=== PATIENT | female | born 1935 | race Caucasian/White ===

== ENCOUNTER → 2016-05-18 | Outpatient (CLI) | payer MEDICARE, OTHER ==
--- NOTE | 2016-05-18 16:17 | CT ---
EXAM DESCRIPTION: Chest CT. CLINICAL HISTORY: Abnormality seen on previous chest x-ray, nodule COMPARISON: None. TECHNIQUE: A volumetric CT without IV contrast was acquired and displayed in multiplanar reconstructions. FINDINGS: Mediastinum: Coronary artery disease noted. Visualized lymph nodes are within normal limits for CT size criteria. No acute aortic abnormality, pericardial effusion, or mediastinal mass. Upper Abdomen: Visualized segments of the abdominal organs are unremarkable. Lungs: Moderate emphysema noted. No pulmonary nodule or mass noted. No pleural effusion. Bones: No suspicious bone lesion is seen. IMPRESSION: Today's exam demonstrates moderate emphysematous changes, but no evidence of pulmonary malignancy. The findings seen on the previous chest radiograph was likely artifactual. Electronically signed by: Prudencio Seymour MD 05/18/2016 16:15
== END ==
LOC: CT 13:15
PROVIDERS: ATTEND Family Medicine
DX: R93.8 Abnormal findings on diagnostic imaging of other specified body structures (principal); J43.9 Emphysema, unspecified

== ENCOUNTER → 2016-07-29 | Outpatient (CLI) | payer MEDICARE, OTHER ==
--- NOTE | 2016-07-29 17:32 | RAD ---
EXAM DESCRIPTION: Hip,Left 2 Views CLINICAL HISTORY: PAIN IN LEFT HIP COMPARISON: None. TECHNIQUE: AP/frog lateral FINDINGS: I see no bone joint or soft tissue abnormality. IMPRESSION: Normal left hip. Electronically signed by: George Rodriguez MD 07/29/2016 5:31 PM CDT
--- NOTE | 2016-07-29 17:33 | RAD ---
EXAM DESCRIPTION: Hip,Right 2 Views CLINICAL HISTORY: PAIN IN RIGHT HIP COMPARISON: None Available. TECHNIQUE: AP/frog leg lateral FINDINGS: There is no bone, joint, or soft tissue abnormality. IMPRESSION: Normal right hip Electronically signed by: George Rodriguez MD 07/29/2016 5:32 PM CDT
--- NOTE | 2016-07-29 17:34 | RAD ---
EXAM DESCRIPTION: Pelvis CLINICAL HISTORY: PAIN IN RIGHT HIP COMPARISON: None. TECHNIQUE: AP pelvis FINDINGS: Degenerative changes are observed in the pubic symphysis. The pelvis and proximal femurs are otherwise unremarkable. No fracturing is detected. IMPRESSION: Unremarkable pelvis. Electronically signed by: George Rodriguez MD 07/29/2016 5:33 PM CDT
== END | disposition home or self-care (01) ==
LOC: RAD 09:59
PROVIDERS: ATTEND Orthopaedic Surgery
DX: M25.551 Pain in right hip (principal)

== ENCOUNTER → 2017-08-04 | Outpatient (CLI) | payer MEDICARE, OTHER | END | disposition home or self-care (01) | LOC: GMAJ 14:29 | PROVIDERS: ATTEND Family Medicine | DX: R23.3 Spontaneous ecchymoses (principal); I10 Essential (primary) hypertension ==

== ENCOUNTER → 2017-09-14 | Outpatient (CLI) | payer MEDICARE, OTHER ==
--- NOTE | 2017-09-15 10:21 | MRI ---
EXAM DESCRIPTION: Brain w/oContrast: MRI. CLINICAL HISTORY: MEMORY LOSS COMPARISON: None. TECHNIQUE: Multiplanar, high-field MRI unit, multiple diffusion sequences, multiple conventional sequences without contrast. FINDINGS: Multiple small foci of bilateral relatively symmetric hyperintense FLAIR and T2-weighted signal in the periventricular white matter and vera-white matter junctions of the cerebral hemispheres. . Focal bright hyperintense FLAIR and T2 signal in the lateral left basal ganglia; possible cystic signal in the right basal ganglia versus volume loss. No hemorrhage, no cerebral edema, no mass-effect. Minimal hyperintense FLAIR signal in the gemma of the brainstem. Normal signal in the cerebellar hemispheres. No hemorrhage, no cerebral edema, no mass-effect. Concordance of the diffusion and non-diffusion sequences with no diffusion restriction. Cortical sulci, ventricles, and other CSF spaces, and the subdural spaces are normally configured for patients age. No effacement or displacement. No midline shift. No extra-axial hemorrhage. Normal flow signal void in the major vessels of the [place], and the venous sinuses. IACs are symmetric bilaterally. Normal signal in the bilateral mastoid air cells. No mass effect in the bilateral cerebellopontine angles. Pituitary gland occupies most of the sella. Base of the cerebellar tonsils is at the level of the foramen magnum. Mucoperiosteal thickening in the paranasal sinuses. Dental artifact obscuring part of the left maxillary antrum. The bony calvarium is intact. IMPRESSION: 1. Bilateral hyperintensities in the cerebral cortex most likely related to cerebral microvascular disease. Less likely to be a result of demyelinating process, vasculitis, migraine headaches, or inflammatory process. Also seen in the left basal ganglia and gemma. Cyst versus small old infarct with atrophy in the right basal ganglia. No hemorrhage, cerebral edema, or mass effect. 2. Chronic paranasal sinusitis. Electronically signed by: Jacob Blair MD 09/15/2017 10:20 AM CDT
== END ==
LOC: MRI 12:53
PROVIDERS: ATTEND Family Medicine
DX: R41.81 Age-related cognitive decline (principal)

== ENCOUNTER → 2017-09-27 | Outpatient (CLI) | payer MEDICARE, OTHER ==
--- NOTE | 2017-09-27 15:18 | US ---
EXAM DESCRIPTION: Abdomen,Complete CLINICAL HISTORY: 82 years Female, R10.13-EPAGASTRIC PN COMPARISON: None available. TECHNIQUE: Multiple transverse and longitudinal static sonographic images of the upper abdomen were obtained. FINDINGS: Visualized portions of the pancreas appear normal. The liver demonstrates normal size and echogenicity with no intrahepatic biliary ductal dilatation. No focal masses are identified sonographically. The gallbladder is well distended with no gross abnormality. No evidence of wall thickening or hyperemia or pericholecystic fluid. The common duct is nondilated and measures 6 mm. The right kidney measures 9.4 x 4.9 x 4.6 cm and the left kidney measures 9.7 x 4.3 x 4.6 cm. No hydronephrosis or perinephric fluid collections. The spleen is not well-visualized. The visualized abdominal aorta is mildly aneurysmal and measures 3.1 cm in the proximal portion, 2.7 cm in the midportion 2.2 cm in the distal portion. Visualized portions of the inferior vena cava appears normal. IMPRESSION: Mild aneurysmal dilatation of the proximal abdominal aorta measuring up to 3.1 cm. Otherwise normal ultrasound of the upper abdomen. Electronically signed by: Kaycee Amado MD 09/27/2017 3:17 PM CDT
== END ==
LOC: US 10:00
PROVIDERS: ATTEND Family Medicine
DX: R10.13 Epigastric pain (principal); R10.816 Epigastric abdominal tenderness; I71.4 Abdominal aortic aneurysm, without rupture

== ENCOUNTER → 2017-11-10 | Outpatient (CLI) | payer MEDICARE, OTHER ==
--- NOTE | 2017-11-10 17:57 | US ---
Procedure: US CAROTID DOPPLER BILATERAL Exam Date: 11/10/2017 Ordering Provider: CANDACE PINA Clinical Indication: OCCLUSION AND STENOSIS OF BILATERAL CAROTID ARTERIES Comparison: None TECHNIQUE : Real-time cerebrovascular ultrasonography was obtained from sternal notch to the angle of the mandible bilaterally utilizing vera scale, color flow and spectral Doppler analysis. Systolic velocity ratios were calculated for internal carotid artery to common carotid artery bilaterally. FINDINGS: RIGHT CAROTID BIFURCATION: Mild atherosclerotic plaque. Peak systolic and end-diastolic velocities in the right internal carotid artery are 54 and 12 cm/s. Internal carotid/common carotid ratio is 0.6. Right vertebral flow is antegrade. LEFT CAROTID BIFURCATION: Mild atherosclerotic plaque. Peak systolic and end-diastolic velocities in the left internal carotid artery are 63 and 20 cm/s. Internal carotid/common carotid ratio is 0.9. Left vertebral flow is antegrade. IMPRESSION: 1. Mild atherosclerotic plaque in each carotid bulb and ICA origin. 2. There is no significant stenosis (less than 50%) at either ICA origin. 3. Bilateral antegrade vertebral artery flow. Electronically signed by: Luis Bellamy MD 11/10/2017 5:56 PM CDT
== END ==
LOC: RAD 14:43
PROVIDERS: ATTEND Family Medicine
DX: I65.23 Occlusion and stenosis of bilateral carotid arteries (principal)

== ENCOUNTER → 2018-10-11 | Outpatient (CLI) | payer MEDICARE, OTHER | LOC: GMAJ 16:45 | PROVIDERS: ATTEND Family Medicine | DX: R53.83 Other fatigue (principal); I10 Essential (primary) hypertension ==

== ENCOUNTER → 2019-01-19 | Outpatient (CLI) | payer MEDICARE, OTHER | LOC: LAB.O 09:33 | PROVIDERS: ATTEND Nurse Practitioner Family | DX: R23.3 Spontaneous ecchymoses (principal) ==

== ENCOUNTER → 2019-10-01 | Outpatient (CLI) | payer MEDICARE, OTHER ==
--- NOTE | 2019-10-01 16:53 | RAD ---
EXAM DESCRIPTION: Thumb,Right CLINICAL HISTORY: PAIN IN RIGHT THUMB COMPARISON: None. IMPRESSION: 3 views of the right show no acute fracture, focal bone destruction, or joint location. Mild narrowing of the interphalangeal joint with moderate joint line osteophytes seen compatible with moderate to severe osteoarthritic changes. Mild joint space narrowing and joint line osteophytes of the first metacarpal phalangeal joint compatible with mild osteoarthritic changes are seen. Moderate joint space narrowing and joint line osteophytes of the first carpometacarpal joint compatible with moderate to severe osteoarthritic changes are seen. Electronically signed by: Jimmy Durbin MD 10/01/2019 4:51 PM CDT
== END ==
LOC: RAD 15:37
PROVIDERS: ATTEND Nurse Practitioner Family
DX: M25.841 Other specified joint disorders, right hand (principal); M25.741 Osteophyte, right hand; M79.645 Pain in left finger(s)

== ENCOUNTER → 2020-02-21 | Outpatient (CLI) | payer MEDICARE, OTHER ==
--- NOTE | 2020-02-21 20:50 | RAD ---
EXAM DESCRIPTION: Hand,Right 3 Views CLINICAL HISTORY: 84 years Female, PAIN IN RIGHT HAND COMPARISON: Right thumb radiographs 10/01/2019 TECHNIQUE: 3 view radiograph of the right hand. IMPRESSION: No acute displaced fracture. No dislocation. Moderate arthrosis of the interphalangeal joints and carpal bones, greatest at the first carpal metacarpal joint. Pattern findings most consistent with osteoarthritis. MCP joints predominantly maintained. Neutral ulnar variance. No erosion. Ill-defined calcification centered in the ulnar carpal joint space may represent chondral calcinosis. No soft tissue defect or radiopaque foreign body. Electronically signed by: Fausto Diaz MD 02/21/2020 8:48 PM CDT
== END ==
LOC: RAD 09:18
PROVIDERS: ATTEND Orthopaedic Surgery
DX: M19.041 Primary osteoarthritis, right hand (principal); M25.831 Other specified joint disorders, right wrist

== ENCOUNTER 2020-06-22 16:03 | Observation (INO) | payer MEDICARE, OTHER ==
--- NOTE | 2020-06-22 16:06 | ED.PDOC ---
History of Present Illness - General Stated Complaint: Weakness Time Seen by Provider: 06/22/20 16:05 - History of Present Illness Initial Comments: Patient complains of severe generalized weakness with mild dyspnea, onset today. She complains of some mild nasal congestion which is chronic for her. She does have a history of allergies. Patient denies fever or chills. She denies cough. Patient denies chest pain. The patient denies weakness or facial droop but does complain of minimal slurred speech . Her son reports that about 10 AM today she had a 1 hour episode of very slight drooping on the right side of her face. He feels that at present time the patient's speech is very slightly slurred compared to her normal baseline. At that time there was no extremity weakness or difficulty with ambulation. The patient denies prior history of CVA or coronary artery disease. There is some confusion about whether or not she has a prior history of hypertension or hypotension. Timing/Duration: 4-6 hours Severity: mild Improving Factors: nothing Worsening Factors: nothing Associated Symptoms: shortness of breath - Mild., weakness - Generalized, severe. Allergies/Adverse Reactions: Allergies NO KNOWN ALLERGY Allergy (Verified 06/22/20 16:19) Home Medications: Ambulatory Orders Donepezil Hydrochloride [Donepezil HCl] 10 mg PO DAILY 06/22/20 Ibuprofen-Diphenhydramine HCl [Ibuprofen Pm 200-25 mg] 1 cap PO DAILY 06/22/20 Losartan Potassium 50 mg PO DAILY 06/22/20 Memantine [Namenda] 10 mg DAILY 06/22/20 Review of Systems - Review of Systems Constitutional: States: weakness - Generalized EENTM: States: nose congestion - Chronic and unchanged. Respiratory: States: short of breath - Mild and exertional. Cardiology: States: no symptoms reported Gastrointestinal/Abdominal: States: no symptoms reported Genitourinary: States: no symptoms reported Musculoskeletal: States: no symptoms reported Skin: States: no symptoms reported Neurological: States: see HPI, weakness - Facial, mild, resolved. Endocrine: States: no symptoms reported Hematologic/Lymphatic: States: no symptoms reported Family Medical History - Family History Mother Family History: Unknown Living Status: Physical Exam - Physical Exam General Appearance: Alert, Comfortable Eye Exam: bilateral normal Ears, Nose, Throat: normal ENT inspection, normal pharynx Neck: other - No bruits. Respiratory: normal breath sounds Cardiovascular/Chest: regular rate, rhythm Gastrointestinal/Abdominal: normal bowel sounds, non tender, soft Back Exam: normal inspection, no vertebral tenderness Extremity: no pedal edema, no calf tenderness Neurologic: no motor/sensory deficits, normal mood/affect, oriented x 3 - Speech clear. No facial droop noted. No ulnar or leg drift. No past pointing., ot her - Speech ? very minimally slurred. She speaks clearly and can easily be understood. Patient ambulates well without assistance. Skin Exam: normal color Lymphatic: no adenopathy Progress - Progress Progress: 06/22/20 18:00 NIH stroke scale score of 1. All categories were 0 except for #10 dysarthria which was scored 1 due to very minimal slurring of speech. 06/22/20 18:02 Aspirin 324 mg by mouth given. 06/22/20 19:24 Blood pressure still elevated but patient will not allow repeat measurements as needed. Labetalol 10 mg IV ordered and Ativan 1 mg p.o. Awaiting son to arrive with home medications. Troponin second draw 0.08. Plan to admit for consultation when further information regarding medications available. 06/22/20 19:45 Discussed with nurse practitioner starla Borges on-call for [facility]: Because the minimally elevated troponin is trending downwards she will consider admitting this patient to our hospital if the neurology unix consultant does not feel any urgent interventions are needed. Neurology consult requested. Patient given her usual nighttime medications, which include losartan 50 mg. 06/22/20 19:47 06/22/20 20:41 Discussed patient with neurologist on-call for [facility] at 7:58 PM: Patient should be admitted for MRI and carotid ultrasound in the morning. Discussed with nurse practitioner starla Borges on-call for [facility] at 8:35 PM. Will admit to our [facility] for further evaluation. 06/22/20 22:02 Medical decision makin-year-old female presents emergency room 6 hours after the onset of brief episode of minimal facial droop with persistent minimal alteration of speech per family members. The patient's primary complaint was general weakness. On examination no neurological abnormalities were found except for possible minimal slurring of speech although patient speech to me was generally clear and easily recognizable without definite slurring's. Examination was otherwise unremarkable for any acute neurological abnormalities. Patient presented with him moderately high blood pressure that became higher while in the ED and then was reduced with treatment. Patient did have very minimal elevations of troponin which did not trend upwards. Given that she had no EKG changes and no chest pain it is not likely that these minimal elevations represent acute coronary syndrome. Patient be admitted to our hospital for observation and trending of laboratory work. She will have additional testing performed tomorrow to include MRI and carotid ultrasound evaluations. - Results/Orders Results/Orders: Electrocardiogram: Normal sinus rhythm 88/min, short RI interval 86 ms, otherwise normal tracing. No acute STT changes. EXAM DESCRIPTION: Chest,1 View CLINICAL HISTORY: Dyspnea COMPARISON: None. FINDINGS: Cardiac silhouette is within normal limits. There is consolidation at the right lung base. The left lung is clear. IMPRESSION: Right lung base consolidation. Electronically signed by: Jacob Cantu 06/22/2020 5:14 PM [employer]AG WILL[employer] OPERATOR AM DESCRIPTION: Head CLINICAL HISTORY: Stroke symptoms COMPARISON: None Available TECHNIQUE: Contiguous axial CT images of the head were obtained. Coronal and sagittal reconstructions were created from the axial data. This exam was performed according to our departmental dose-optimization program, which includes automated exposure control, adjustment of the mA and/or kV according to patient size and/or use of iterative reconstruction technique. FINDINGS: There is no evidence of acute mass, mass effect, midline shift or hemorrhage. The ventricles and extra-axial CSF spaces are unremarkable. The brain parenchyma appears normal for the patient's age. No acute abnormalities of the bones is seen. IMPRESSION: No acute intracranial abnormality. Electronically signed by: Jacob Cantu 06/22/2020 5:12 PM RAG WILLOW OPERATOR - 0538 Nasal swab for rapid COVID-19 test negative. Repeat electrocardiogram: Normal sinus rhythm, 92/min, biatrial enlargement, no abnormalities of intervals, no abnormalities of ST-T segments or T waves. PROCEDURE: Chest w/Contrast CLINICAL HISTORY: 84 years Female Infiltrate right lower lobe versus mass COMPARISON: 06/22/2020. TECHNIQUE: Contiguous axial images were obtained through the chest during the infusion of IV contrast. Reformatted images obtained. Multiplanar reformatted images obtained. This exam was performed according to our department optimization program which includes automated exposure control, adjustment of the mA and/or kv according to patient size and/or use of iterative reconstruction technique. FINDINGS: Calcification and tortuosity of the thoracic aorta. No evidence of aneurysm or dissection. Small hiatal hernia. No evidence of mediastinal or hilar adenopathy. No pericardial or pleural effusion. There is no evidence of pulmonary mass or consolidation. Lungs appear clear. Emphysematous change. Degenerative changes in the spine. IMPRESSION: No evidence of mass or consolidation. Lungs appear clear Vascular calcification Abnormality on plain film corresponds to overlying breast tissue Electronically signed by: Katarina Macias MD 06/22/2020 7:00 PM Third electrocardiogram: Normal sinus rhythm, 72/min. Short RI 96 ms. Otherwise normal electrocardiogram. 06/22/20 16:30 EKG STAT 06/22/20 17:58 Hold Metformin x 48Hrs [id number] 06/22/20 18:18 EKG STAT 06/22/20 18:46 BLOOD CULTURE Stat 06/22/20 20:18 EKG STAT 06/22/20 20:20 CARDIAC ENZYME GROUP Stat 06/22/20 20:44 ED Intent to Admit Routine Laboratory Results - last 24 hr 06/22/20 06/22/20 06/22/20 16:31 16:31 16:31 WBC 4.9 RBC 4.08 L Hgb 13.7 Hct 39.5 MCV 96.8 MCH 33.6 H MCHC 34.7 RDW 13.9 Plt Count 187 MPV 6.5 L Absolute Neuts (auto) 3.60 Absolute Lymphs (auto) 0.80 L Absolute Monos (auto) 0.50 Absolute Eos (auto) 0.10 Absolute Basos (auto) 0.00 Neutrophils % 72.1 Lymphocytes % 16.4 L Monocytes % 9.8 H Eosinophils % 1.3 Basophils % 0.4 PT 9.6 INR < 1.00 PTT (SP) 23.5 Sodium 137 Potassium 4.1 Chloride 101 Carbon Dioxide 24 Anion Gap 16.1 BUN 17 Creatinine 1.12 BUN/Creatinine Ratio 15.2 Random Glucose 126 H Serum Osmolality 276.9 Calcium 8.8 Total Bilirubin 0.7 AST 22 ALT 12 Alkaline Phosphatase 58 Creatine Kinase 30 CK-MB (CK-2) 2.1 CK-MB (CK-2) % Not Reportable Troponin I 0.09 H* Serum Total Protein 6.5 Albumin 3.6 Globulin 2.9 Albumin/Globulin Ratio 1.2 06/22/20 06/22/20 18:45 20:20 WBC RBC Hgb Hct MCV MCH MCHC RDW Plt Count MPV Absolute Neuts (auto) Absolute Lymphs (auto) Absolute Monos (auto) Absolute Eos (auto) Absolute Basos (auto) Neutrophils % Lymphocytes % Monocytes % Eosinophils % Basophils % PT INR PTT (SP) Sodium Potassium Chloride Carbon Dioxide Anion Gap BUN Creatinine BUN/Creatinine Ratio Random Glucose Serum Osmolality Calcium Total Bilirubin AST ALT Alkaline Phosphatase Creatine Kinase 27 26 CK-MB (CK-2) 1.9 1.8 CK-MB (CK-2) % Not Reportable Troponin I 0.08 H* 0.08 H* Serum Total Protein Albumin Globulin Albumin/Globulin Ratio Vital Signs - 24 hr 06/22/20 06/22/20 06/22/20 16:15 16:26 17:06 Temperature 98.4 F Pulse Rate [ 79 90 Left Ulnar] Respiratory 20 20 20 Rate Blood Pressure 199/90 164/89 [Left Arm] O2 Sat by Pulse 98 96 Oximetry 06/22/20 06/22/20 06/22/20 18:00 19:00 20:00 Temperature Pulse Rate [ 98 H 80 81 Left Ulnar] Respiratory 16 16 16 Rate Blood Pressure 176/104 216/108 163/73 [Left Arm] O2 Sat by Pulse 96 94 L 95 Oximetry Departure - Departure Clinical Impression: Transient ischemic attack (TIA), Hypertension, Minimal elevation of troponin Disposition: Admit Patient Condition: Good Referrals: NAKUL ORELLANA IV, PORTAL ARCHITECT [Primary Care Provider] - 1-2 Weeks Home Medications: Ambulatory Orders Donepezil Hydrochloride [Donepezil HCl] 10 mg PO DAILY 06/22/20 Ibuprofen-Diphenhydramine HCl [Ibuprofen Pm 200-25 mg] 1 cap PO DAILY 06/22/20 Losartan Potassium 50 mg PO DAILY 06/22/20 Memantine [Namenda] 10 mg DAILY 06/22/20 Decision To Admit - Decistion To Admit Decision to Admit Reason: Admit from ER - Further evaluation of minimal neurological symptoms. Decision to Admit Date: 06/22/20 Decision to Admit Time: 20:42
--- NOTE | 2020-06-22 17:13 | CT ---
EXAM DESCRIPTION: Head CLINICAL HISTORY: Stroke symptoms COMPARISON: None Available TECHNIQUE: Contiguous axial CT images of the head were obtained. Coronal and sagittal reconstructions were created from the axial data. This exam was performed according to our departmental dose-optimization program, which includes automated exposure control, adjustment of the mA and/or kV according to patient size and/or use of iterative reconstruction technique. FINDINGS: There is no evidence of acute mass, mass effect, midline shift or hemorrhage. The ventricles and extra-axial CSF spaces are unremarkable. The brain parenchyma appears normal for the patient's age. No acute abnormalities of the bones is seen. IMPRESSION: No acute intracranial abnormality. Electronically signed by: Jacob Cantu 06/22/2020 5:12 PM [facility]
--- NOTE | 2020-06-22 17:15 | RAD ---
EXAM DESCRIPTION: Chest,1 View CLINICAL HISTORY: Dyspnea COMPARISON: None. FINDINGS: Cardiac silhouette is within normal limits. There is consolidation at the right lung base. The left lung is clear. IMPRESSION: Right lung base consolidation. Electronically signed by: Jacob Cantu 06/22/2020 5:14 PM [facility]
[2020-06-22] MEDS ORDERED: ASPIRIN (CHEWABLE) 81 MG TAB PO ONE (17:48)
--- NOTE | 2020-06-22 19:02 | CT ---
PROCEDURE: Chest w/Contrast CLINICAL HISTORY: 84 years Female Infiltrate right lower lobe versus mass COMPARISON: 06/22/2020. TECHNIQUE: Contiguous axial images were obtained through the chest during the infusion of IV contrast. Reformatted images obtained. Multiplanar reformatted images obtained. This exam was performed according to our department optimization program which includes automated exposure control, adjustment of the mA and/or kv according to patient size and/or use of iterative reconstruction technique. FINDINGS: Calcification and tortuosity of the thoracic aorta. No evidence of aneurysm or dissection. Small hiatal hernia. No evidence of mediastinal or hilar adenopathy. No pericardial or pleural effusion. There is no evidence of pulmonary mass or consolidation. Lungs appear clear. Emphysematous change. Degenerative changes in the spine. IMPRESSION: No evidence of mass or consolidation. Lungs appear clear Vascular calcification Abnormality on plain film corresponds to overlying breast tissue Electronically signed by: Katarina Macias MD 06/22/2020 7:00 PM [employer]ING [employer]
[2020-06-22] MEDS ORDERED: LABETALOL INJ 5 MG/ML VIAL IV ONE (19:11)
[2020-06-22] MEDS ORDERED: LORazepam 0.5 MG TAB PO ONE (19:22)
--- NOTE | 2020-06-22 22:39 | HP ---
SUPERVISING PHYSICIAN: Steven Loza M.D. DATE OF ADMISSION: 06/22/20 CHIEF COMPLAINT: Weakness. HISTORY OF PRESENT ILLNESS: This is an 84 year-old female patient who lives alone. She was brought to the Emergency Room with generalized weakness and shortness of breath as well as some slight slurred speech. It was reported that earlier in the day she had had some right sided facial droop with slurred speech but that had mostly resolved with some minimal slurred speech on admission to the Emergency Room. She did say that she was quite weak and was having difficulty ambulating, but that has only been the last day or so. Her admitting vital signs showed a temperature of 98.4 with a heart rate of 79, blood pressure 199/90. It went up as high as 216.108, respiratory rate 20, O2 saturation 98%. Lab was complete and her WBCs were 4.9 with hemoglobin 13.7, hematocrit 39.5. Electrolytes were basically within normal limits. Troponin was slightly elevated at 0.09 but went down to 0.08 after 2 hours. Liver enzymes were within normal limits. Blood cultures were drawn. COVID swab was negative. Chest x- ray showed right lung base consolidation. Head CT showed no acute intracranial abnormality. Chest CT shows no evidence of mass or consolidation. Lungs appear clear with vascular calcifications. Abnormality on plain film corresponds to overlying breast tissue. The patient was placed in observation in the hospital for further workup for TIA symptoms. PAST MEDICAL HISTORY: 1. Carotid artery stenosis. 2. Chronic obstructive pulmonary disease. 3. Hypertension. 4. Retinal hemorrhage of the right eye. PAST SURGICAL HISTORY: 1. Hysterectomy. CURRENT MEDICATIONS: ALLERGIES: NO KNOWN DRUG ALLERGIES. FAMILY HISTORY: Positive for diabetes. SOCIAL HISTORY: She is . She lives in [place]. She quit smoking in 2014. There is no history of ETOH or illicit drug use. REVIEW OF SYSTEMS: GENERAL: Positive for fatigue and weakness. Negative for weight changes. HEENT: Negative for sinus symptoms, ear pain, vision changes or sore throat. RESPIRATORY: Positive for mild shortness of breath. Negative for wheezing or coughing. CARDIAC: Negative for chest pain, palpitations or tachycardia. GASTROINTESTINAL: Negative for nausea, vomiting or diarrhea. GENITOURINARY: Negative for hematuria, dysuria or polyuria. MUSCULOSKELETAL: Negative for arthralgias, myalgias. SKIN: Negative for lesions or rashes. NEUROLOGIC: As per the History of Present Illness. PHYSICAL EXAMINATION: VITAL SIGNS: Temperature 97.3, heart rate 94, blood pressure 130/72, respiratory rate 18, O2 saturation 94%. GENERAL: This is an 85 year-old female patient lying in her hospital bed. She is in no acute distress. HEENT: Normocephalic, atraumatic. Pupils are equal and reactive. Oropharynx is clear. NECK: Supple with full range of motion. RESPIRATORY: Essentially clear to auscultation bilaterally. CARDIOVASCULAR: Regular rate and rhythm. GASTROINTESTINAL: Abdomen is soft, nondistended, nontender. Bowel sounds are positive. EXTREMITIES: No cyanosis, clubbing or edema. NEUROLOGIC: Awake, alert and oriented times three. She does have a slight slur to her speech. There is no facial droop noted. SKIN: [place], warm and dry. FOLLOWUP LABORATORY: WBCs are 3,800 with hemoglobin 12.5, hematocrit 36.3. Electrolytes are basically within normal limits. Brain MRI shows: 1. Acute versus subacute small infarction, left periventricular white matter, posterior frontal lobe abutting the frontoparietal junction. No significant mass effect. No hemorrhage. Correlate for focal neurologic signs more likely right body/extremities than left. 2. Age-related white matter changes, also cerebral microvascular disease stable since 2018. 3. Minimal chronic paranasal sinusitis with no acute findings. Carotid artery ultrasound shows: 1. Doppler evaluation of the bilateral carotid system and vertebral arteries show no hemodynamically significant stenosis (less than 70%). 2. Minimal to moderate amount fo plaque in the carotid arteries bilaterally. Bilateral vertebral arteries show antegrade-cephalad flow. Echocardiogram shows: 1. Left ventricular ejection fraction estimated 2D at 55%. 2. Grade 1 diastolic dysfunction consistent with impaired relaxation and normal filling pressures. 3. There is mild concentric left ventricular hypertrophy. 4. Mild left atrial enlargement, negative study for intracardiac shunt. ASSESSMENT: 1. 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 2. Hypertensive crisis that is mostly resolved. 3. Carotid artery stenosis. 4. Chronic obstructive pulmonary disease without acute exacerbation. PLAN: The patient was admitted to the hospital and started on the GI/stroke guidelines. She was given an aspirin in the Emergency Room as well as some Labetalol for her blood pressure control. Since she has been to the floor she has had no elevated blood pressures. Her home medications were restarted. Her blood pressures will need to be monitored as she is on an ARB and she may need to have those adjusted. Started her on Plavix and neuro checks were completed. She has agreed for discharge to [facility] and they will come for evaluation tomorrow. She does see Clayton Terrell and will need close followup with him as an outpatient. Will follow and treat as needed. #[id number] [facility]
[2020-06-22] MEDS ORDERED: ONDANSETRON INJ 4 MG/2 ML VIAL IV PRN (22:44)
[2020-06-22] MEDS ORDERED: SODIUM CHLORIDE 0.9% (FLUSH) 10 ML SYG IV PRN (22:44)
[2020-06-22] MEDS ORDERED: ENOXAPARIN SODIUM 40 MG/0.4 ML SYG SUBCU SCH (23:00)
[2020-06-22] MEDS ORDERED: IV SET AND CAP CHANGE INJ INJ SCH (23:00)
[2020-06-22] MEDS: NICOTINE PATCH 14 MG TD SCH (23:28)
[2020-06-23] MEDS ORDERED: PANTOPRAZOLE SODIUM IV 40 MG VIAL IV SCH (06:30)
[2020-06-23] MEDS ORDERED: DONEPEZIL HCL 5 MG TAB ONE (08:19)
[2020-06-23] MEDS ORDERED: LOSARTAN POTASSIUM 25 MG TAB ONE (08:19)
[2020-06-23] MEDS: NICOTINE PATCH 14 MG TD SCH (08:34)
[2020-06-23] MEDS: MEMANTINE 10 MG TAB PO SCH (08:34)
[2020-06-23] MEDS: SODIUM CHLORIDE 0.9% (FLUSH) 10 ML SYG IV SCH ×2 (08:35→20:33)
[2020-06-23] MEDS ORDERED: NON-FORMULARY MEDICATION 1 EA MIS (Donepezil Hydrochloride [Donepezil Hcl] 10 MG) PO SCH (09:00)
[2020-06-23] MEDS ORDERED: NON-FORMULARY MEDICATION 1 EA MIS (Losartan Potassium [Losartan Potassium] 50 MG) PO SCH (09:00)
--- NOTE | 2020-06-23 09:56 | MRI ---
EXAM DESCRIPTION: Brain w/o Contrast: MRI. CLINICAL HISTORY: TIA COMPARISON: MRI scan of the brain without IV gadolinium contrast August 2017. TECHNIQUE: Multiplanar, high-field MRI unit, multiple diffusion sequences, multiple conventional sequences without contrast. FINDINGS: Punctate focus of diffusion restriction in the periventricular left posterior frontal white matter just anterior to the frontoparietal junction associated with hyperintense FLAIR and T2 signal and hypointense T1 signal. No hemorrhage, no mass effect, no cerebral edema. Bilateral hyperintense FLAIR and T2-weighted signal in the periventricular white matter and sub-cortical white matter most of the cerebral lobes with relative sparing of the temporal lobes.. No hemorrhage, no cerebral edema, no midline shift.. 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 Stable since the prior study. No hemorrhage, no cerebral edema, no mass-effect minimal hyperintense T2 and FLAIR signal in the gemma without hemorrhage, diffusion restriction, or mass effect; remainder of the brainstem and cerebellar hemispheres with normal signal. Concordance of the diffusion and non-diffusion sequences with no diffusion restriction, except for the single focus in the periventricular left frontal white matter as described above. Cortical sulci, ventricles, and other CSF spaces, and the subdural spaces are physiologic for patient's age. No effacement or displacement. No midline shift. No extra-axial hemorrhage. Normal flow signal void in the major vessels of the [place], and the venous sinuses. IACs are symmetric bilaterally. Normal signal in the bilateral mastoid air cells. No mass effect in the bilateral cerebellopontine angles. Pituitary gland occupies approximately half of the sella. Base of the cerebellar tonsils is at the level of the foramen magnum. Minimal mucoperiosteal thickening in the bilateral paranasal sinuses. No air fluid levels. The bony calvarium is intact. IMPRESSION: 1. Acute versus subacute small infarction, left periventricular white matter, posterior frontal lobe, abutting the frontoparietal junction. No significant mass effect. No hemorrhage. Correlate for focal neurologic signs more likely right body/extremities than left. 2. Age-related white matter changes, also cerebral microvascular disease is stable since 2018, in the cerebral hemispheres and gemma. 3. Minimal chronic paranasal sinusitis with no acute findings. CRITICAL COMMUNICATION: The critical value was communicated directly by Dr. Bliar via phone call, with Ms. Genesis Castellanos, family nurse practitioner and hospitalist, at approximately 952 hours, on June 23, 2020 Electronically signed by: Jacob Blair MD 06/23/2020 9:55 AM [facility]
--- NOTE | 2020-06-23 12:23 | US ---
EXAM DESCRIPTION: Carotid Duplex: ULTRASOUND. CLINICAL HISTORY: 84 years Female TIA COMPARISON: Brain MRI without contrast on this visit. TECHNIQUE: Transcutaneous scanning utilizing vera-scale and Doppler modes to evaluate the bilateral carotid systems and vertebral arteries. Percentage of diameter of stenosis or no stenosis recorded will be based upon NASCET criteria. FINDINGS: Peak systolic/end diastolic velocities (CM-Sec) CCA Right 57/11 Left 58/15. ICA Right proximal 29/7, distal 44/8. Left proximal 54/19, mid 54/15. Vertebral Right 32/9 Left 35/8. ECA (PS Only) Right 41 left 47. ICA/CCA peak systolic velocity ratio: Right 0.8 Left 0.9 ICA/CCA end diastolic velocity ratio: Right 0.7 Left 1.0 Vertebral arteries: antegrade flow. Comments: This bilateral atherosclerotic calcification in the bifurcations. Less than 20% area and diameter stenosis on the right. Less than 40% area diameter stenosis on the left. IMPRESSION: 1. Doppler evaluation of the bilateral carotid systems and vertebral arteries shows no hemodynamically significant stenoses (less than 70%). 2. Minimal to moderate amount of plaque in the carotid arteries bilaterally. Bilateral vertebral arteries showed antegrade-cephalad flow. Electronically signed by: Jacob Blair MD 06/23/2020 12:21 PM [employer]
[2020-06-23] MEDS: CLOPIDOGREL 75 MG TAB PO SCH (16:29)
[2020-06-23] MEDS ORDERED: ENOXAPARIN SODIUM 40 MG/0.4 ML SYG SUBCU SCH (21:00)
[2020-06-24] MEDS ORDERED: PANTOPRAZOLE SODIUM TAB 40 MG PO ONE (03:56)
[2020-06-24] MEDS ORDERED: PANTOPRAZOLE SODIUM TAB 40 MG PO SCH (06:30)
[2020-06-24] MEDS ORDERED: ASPIRIN (CHEWABLE) 81 MG TAB ONE (07:55)
[2020-06-24] MEDS ORDERED: DONEPEZIL HCL 5 MG TAB ONE (07:55)
[2020-06-24] MEDS ORDERED: LOSARTAN POTASSIUM 25 MG TAB ONE (07:56)
[2020-06-24] MEDS: CLOPIDOGREL 75 MG TAB PO SCH (08:26)
[2020-06-24] MEDS: MEMANTINE 10 MG TAB PO SCH (08:26)
[2020-06-24] MEDS: NICOTINE PATCH 14 MG TD SCH (08:26)
[2020-06-24] MEDS: SODIUM CHLORIDE 0.9% (FLUSH) 10 ML SYG IV SCH (08:33)
[2020-06-24] MEDS ORDERED: LOSARTAN POTASSIUM 25 MG TAB PO SCH (09:00)
[2020-06-24] MEDS ORDERED: REMOVE OLD PATCH TOP SCH (09:00)
[2020-06-24] MEDS ORDERED: DONEPEZIL HCL 5 MG TAB PO SCH (09:00)
[2020-06-24] MEDS ORDERED: ASPIRIN (CHEWABLE) 81 MG TAB PO SCH (09:00)
[2020-06-24 10:47] VITALS: TEMP 98.4
[2020-06-24 13:02] VITALS: BP 167/99
[2020-06-24 14:22] VITALS: O2SAT 98
--- NOTE | 2020-06-26 11:10 | DS ---
SUPERVISING PHYSICIAN: Steven Loza MD ADMISSION DIAGNOSIS: 1. 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 2. Hypertensive crisis that is mostly resolved. 3. Carotid artery stenosis. 4. Chronic obstructive pulmonary disease without acute exacerbation. DISCHARGE DIAGNOSIS: 1. Left sided cerebrovascular accident, acute versus subacute with residual slurred speech and weakness, requiring rehabilitation. 2. Hypertension, now controlled. 3. Carotid artery stenosis, to be followed up as an outpatient. 4. Chronic obstructive pulmonary disease without acute exacerbation on admission. REASON FOR HOSPITALIZATION: This is an 84 year-old female patient who lives alone. She was brought to the Emergency Room with generalized weakness and shortness of breath as well as some slight slurred speech. It was reported that earlier in the day she had had some right sided facial droop with slurred speech but that had mostly resolved with some minimal slurred speech on admission to the Emergency Room. She did say that she was quite weak and was having difficulty ambulating, but that has only been the last day or so. Her admitting vital signs showed a temperature of 98.4 with a heart rate of 79, blood pressure 199/90. It went up as high as 216.108, respiratory rate 20, O2 saturation 98%. Lab was complete and her WBCs were 4.9 with hemoglobin 13.7, hematocrit 39.5. Electrolytes were basically within normal limits. Troponin was slightly elevated at 0.09 but went down to 0.08 after 2 hours. Liver enzymes were within normal limits. Blood cultures were drawn. COVID swab was negative. Chest x- ray showed right lung base consolidation. Head CT showed no acute intracranial abnormality. Chest CT shows no evidence of mass or consolidation. Lungs appear clear with vascular calcifications. Abnormality on plain film corresponds to overlying breast tissue. The patient was placed in observation in the hospital for further workup for TIA symptoms. LABORATORY: White count at discharge was 3,800, hemoglobin 12.5, hematocrit 36.3, platelet count 169,000. Differential did not show a left shift. Coagulation studies showed normal PT, PTT. Chemistries showed all normal electrolytes. Creatinine 0.77. She did have slightly elevated troponin at 0.09, decreased to 0.08. No reported chest pains. Lipid panel showed normal triglycerides and cholesterol. Normal TSH. Urinalysis was not collected. MICROBIOLOGY: Blood cultures negative after 4 days. Nasopharyngeal swab for COVID was negative. RADIOLOGY: Brain MRI shows: 1. Acute versus subacute small infarction, left periventricular white matter, posterior frontal lobe abutting the frontoparietal junction. No significant mass effect. No hemorrhage. Correlate for focal neurologic signs more likely right body/extremities than left. 2. Age-related white matter changes, also cerebral microvascular disease stable since 2018. 3. Minimal chronic paranasal sinusitis with no acute findings. Carotid artery ultrasound shows: 1. Doppler evaluation of the bilateral carotid system and vertebral arteries show no hemodynamically significant stenosis (less than 70%). 2. Minimal to moderate amount fo plaque in the carotid arteries bilaterally. Bilateral vertebral arteries show antegrade-cephalad flow. Echocardiogram shows: 1. Left ventricular ejection fraction estimated 2D at 55%. 2. Grade 1 diastolic dysfunction consistent with impaired relaxation and normal filling pressures. 3. There is mild concentric left ventricular hypertrophy. 4. Mild left atrial enlargement, negative study for intracardiac shunt. CT of the chest showed no evidence of mass or consolidation. Lungs were clear. EK-lead EKG showed sinus rhythm without any ST or T-wave changes at 88 beats per minute. No indication of acute ischemia or acute coronary syndrome. HOSPITAL COURSE: Ms. Canales was admitted for left sided stroke. She was worked up extensively. She was found to be stable. Her vital signs were stable. Initially, her blood pressure was showing elevation to 216/108. This was controlled with medications and she was allowed permissive hypertension. On discharge, blood pressure was 168/83, respirations 16, saturation 94% on room air, heart rate 91. She did have a slightly elevated troponin, but was not having any active chest pains and no changes on EKG to indicate acute ischemia. It was felt she was clinically improved and stable enough to continue with outpatient management through physical therapy. She was evaluated for stroke rehabilitation through [facility] and was accepted. She was transferred to [facility] on 06/24/20 to continue with outpatient management. PLAN: Ms. Canales was discharged and transferred to [facility] in [place] to continue stroke rehabilitation for left sided stroke. She was started on Plavix, aspirin and was already on a statin. She was to resume her usual diet as tolerated per the rehab center. Activities per the rehab center in [place]. She has a followup appointment on 07/01/[address] Galicia at 10 AM. Medications prescribed on discharge included: 1. Aspirin 81 mg daily. 2. Plavix 75 mg daily, #30, no refills, to be continued through Dr. Galicia' office at Dr. Galicia' discretion. CONDITION ON DISCHARGE: Stable and improved. DISPOSITION: The patient was discharged to [facility] in [place]. #[id number] [facility]
== END 2020-06-24 14:50 ==
LOC: ER 16:03 → MS 22:38
PROVIDERS: ADMIT Nurse Practitioner Acute Care; ATTEND Nurse Practitioner Family
DX: I63.9 Cerebral infarction, unspecified (principal); R29.701 NIHSS score 1; R53.1 Weakness; R47.81 Slurred speech; I16.9 Hypertensive crisis, unspecified; I10 Essential (primary) hypertension; I65.23 Occlusion and stenosis of bilateral carotid arteries; J44.9 Chronic obstructive pulmonary disease, unspecified; I08.3 Combined rheumatic disorders of mitral, aortic and tricuspid valves; Z20.822 Contact with and (suspected) exposure to COVID-19; Z79.899 Other long term (current) drug therapy; Z88.1 Allergy status to other antibiotic agents; Z88.6 Allergy status to analgesic agent; Z87.891 Personal history of nicotine dependence
CPT/HCPCS: 96374; 96375; 96372 ×2; J2405; J1650 ×2; A4216 ×3; 82553 ×3; 80053 ×2; 80061; 36415 ×2; 85025 ×2; 82550 ×3; 87040 ×2; 83735; 85730; 85610; 84443; 84484 ×3; 71045; 70450; 71260; 93880; 94760 ×6; 97162; 99285; 93306; 70551; 93005 ×3; G0378; 87635